=== PATIENT | male | born 1950 | race Caucasian/White ===

== ENCOUNTER 2018-03-23 13:44 | Emergency (ER) | payer OTHER ==
[~2018-03-23] VITALS: Ht 185.4 cm; Wt 102.1 kg
== END 2018-03-23 19:18 | disposition home or self-care (01) ==
LOC: ER 13:44
DX: K70.30 Alcoholic cirrhosis of liver without ascites (principal); K80.20 Calculus of gallbladder without cholecystitis without obstruction